=== PATIENT | female | born 1950 | race Caucasian/White ===

== ENCOUNTER 2021-08-31 13:00 | Outpatient (RCR) | payer MEDICARE, OTHER, SELFPAY ==
[2021-08-31 13:30] VITALS: TEMP 36.1
[2021-08-31 16:14] VITALS: PULSE 81; RESP 14; TEMP 36.3
--- NOTE | 2021-08-31 16:27 | ONC.NURNOTE ---
arrived at 1300. blood not ready till 1600. transfered to med surg at 1640 after 15 min check.
[2021-08-31 16:32] VITALS: BP 128/76; PULSE 67; RESP 14; TEMP 36.6
[2021-08-31 17:00] VITALS: BP 179/81; PULSE 100; RESP 18; TEMP 37.2; O2SAT 97
[2021-08-31 18:17] VITALS: BP 164/70; PULSE 96; RESP 18; TEMP 37.5; O2SAT 100
== END 2021-09-01 23:59 | disposition home or self-care (01) ==
LOC: CCIC 13:00
PROVIDERS: PCP Family Medicine; Visit Provider Clinical Nurse Specialist
DX: D64.9 Anemia, unspecified (principal)
CPT/HCPCS: 36415; 36430; 86850; 86900; 86901; 86922; P9016